=== PATIENT | female | born 1975 | race Two or more races ===

== ENCOUNTER 2021-10-31 14:15 | Emergency (ER) | payer OTHER ==
[~2021-10-31] VITALS: Ht 157.5 cm; Wt 84.0 kg
[2021-10-31 15:07] LABS: Basophils # (auto) 0.1 10 ^3/uL (0-0.2); Eosinophils # (auto) 0.1 10 ^3/uL (0-0.8); Eosinophils % (auto) 0.7 % (0.0-7.0); Hematocrit 31.3 % (36.0-46.0); Lymphocytes # (auto) 1.8 10 ^3/uL (0.4-5.4); Neutrophils # (auto) 5.5 10 ^3/uL (1.6-8.6)
[2021-10-31 15:08] LABS: Hemoglobin 9.4 g/dL (12.2-16.2); Lymphocytes % (auto) 22.4 % (10.0-50.0); Mean Corpuscular Hemoglobin 20.6 pg (28.0-32.0); Mean Corpuscular Hgb Conc. 30.1 g/dL (32.0-36.0); Mean Corpuscular Volume 68.4 fL (80.0-100.0); Monocytes # (auto) 0.4 10 ^3/uL (0-1.3); Monocytes % (auto) 5.5 % (0.0-12.0); Neutrophils % (auto) 70.4 % (37.0-80.0); Nucleated Red Blood Cells % 0.1 %; Red Blood Cells 4.57 10^6/uL (4.0-5.20); White Blood Cell 7.9 10^3/uL (4.4-10.8)
[2021-10-31 15:10] LABS: Red Cell Distribution Width 26.3 % (11.8-14.3)
[2021-10-31 15:17] LABS: Urine Bacteria MANY /hpf (None Seen); Urine Blood 2+ /uL (Negative); Urine Mucus FEW (None Seen); Urine Specific Gravity 1.023 (1.001-1.035); Urine WBC 61 /hpf (0 - 5)
[2021-10-31 17:40] LABS: Potassium 3.7 mmol/L (3.5-5.1)
[2021-10-31 17:48] LABS: Albumin 3.3 g/dL (3.4-5.0); BUN/Creatinine Ratio 27.1; Calcium 8.8 mg/dL (8.5-10.1)
[2021-10-31 17:50] LABS: Bilirubin, Total 0.2 mg/dL (0.2-1.0); Total Protein 7.5 g/dL (6.4-8.2)
[2021-10-31] MEDS ORDERED: ACETAMINOPHEN 325 MG TAB PO ONE (21:00)
[2021-10-31] MEDS ORDERED: PANTOPRAZOLE 40 MG TAB PO ONE (22:45)
[2021-10-31] MEDS ORDERED: LIDOCAINE VISCOUS 2% 15ML UD PO ONE (22:45)
[2021-10-31] MEDS ORDERED: ALUM & MAG HYDROX-SIMETH LIQ(MAALOX) 30 ML PO ONE (22:45)
[2021-10-31] MEDS ORDERED: PANT40TA2 PO (22:48)
[2021-10-31] MEDS ORDERED: NITR-87 PO (22:48)
[2021-10-31] MEDS ORDERED: NITROFURANTOIN 100 mg CAP PO ONE (23:00)
[2021-10-31 23:44] VITALS: BP 156/73
== END 2021-10-31 22:57 | disposition home or self-care (01) ==
LOC: ER 14:15
DX: D64.9 Anemia, unspecified (principal); K42.9 Umbilical hernia without obstruction or gangrene
CPT/HCPCS: 36415; 74176; 80053; 81001; 82150; 83690; 84702; 85025